=== PATIENT | male | born 2000 | race Caucasian/White ===

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

== ENCOUNTER 2019-10-25 16:27 | Emergency (ER) | payer OTHER ==
[2019-10-25 17:35] VITALS: BP 135/67
--- NOTE | 2019-10-25 18:07 | UC ---
Lower Extremity/Ankle HPI - HPI Summary HPI Summary: 18-year-old male presents with 4 day history of tenderness, redness, and swelling to the dorsal left great toe at the base of the toenail. No known injury. Denies fever, chills, drainage, or joint pain. - History of Current Complaint Chief Complaint: UCLowerExtremity Stated Complaint: INFECTED LT BIG TOE Time Seen by Provider: 10/25/19 17:41 Hx Obtained From: Patient Pain Intensity: 5 - Allergies/Home Medications Allergies/Adverse Reactions: Allergies Allergy/AdvReac Type Severity Reaction Status Date / Time No Known Allergies Allergy Verified 10/25/19 17:35 Home Medications: Home Medications Ibuprofen 200 mg PO Q6HR PRN 10/25/19 [History Confirmed 10/25/19] cephALEXin [Keflex] 500 mg PO QID 7 Days #28 capsule 10/25/19 [Rx] PMH/Surg Hx/FS Hx/Imm Hx Previously Healthy: Yes - Denies significant PMH - Surgical History Surgical History: Yes Surgery Procedure, Year, and Place: T&A - Family History Known Family History: Negative: Diabetes - Social History Lives: With Family Alcohol Use: None Substance Use Type: None Smoking Status (MU): Never Smoked Tobacco - Immunization History Most Recent Influenza Vaccination: NOT YET 2017 Vaccination Up to Date: Yes Review of Systems All Other Systems Reviewed And Are Negative: Yes Constitutional: Negative: Fever, Chills Skin: Positive: Other - See HPI Respiratory: Positive: Negative Cardiovascular: Positive: Negative Gastrointestinal: Positive: Negative Genitourinary: Positive: Negative Neurovascular: Negative: Decreased Sensation Musculoskeletal: Negative: Arthralgia, Decreased ROM Neurological/Mental Status: Positive: Negative Physical Exam - Summary Physical Exam Summary: GENERAL APPEARANCE: Well developed, well nourished, alert and cooperative, and appears to be in no acute distress. CARDIAC: Normal S1 and S2. No S3, S4 or murmurs. Rhythm is regular. There is no peripheral edema, cyanosis or pallor. Extremities are warm and well perfused. Capillary refill is less than 2 seconds. Peripheral pulses intact. LUNGS: Clear to auscultation without rales, rhonchi, wheezing or diminished breath sounds. ABDOMEN: Positive bowel sounds. Soft, nondistended, nontender. No guarding or rebound. No masses or hepatosplenomegally. MUSKULOSKELETAL: ROM intact to all extremities. No joint erythema or tenderness. Normal muscular development. Normal gait. EXTREMITIES: Erythema and mild edema to the proximal nail fold of the left great toe without induration, fluctuance, or drainage. SKIN: Skin normal color, texture and turgor. Triage Information Reviewed: Yes Vital Signs: Initial Vital Signs Temp 98 F 10/25/19 17:30 Pulse 77 10/25/19 17:30 Resp 14 10/25/19 17:30 BP 135/67 10/25/19 17:30 Pulse Ox 100 10/25/19 17:30 Vital Signs Reviewed: Yes Lower Extremity Course/Dx - Course Course Of Treatment: 18-year-old male presents with 4 day history of tenderness, redness, and swelling to the dorsal left great toe at the base of the toenail. No known injury. Denies fever, chills, drainage, or joint pain. Afebrile. Vital signs stable. Patient had erythema and mild edema to the proximal nail fold of the left great toe without induration, fluctuance, or drainage and otherwise unremarkable exam. We'll start him on cephalexin 500 mg 4 times a day 7 days to treat for a paronychia. He is to follow-up with podiatry in 3-5 days if symptoms are not improving. Anticipatory guidance and warning symptoms are patient. Verbalizes understanding and agrees with plan of care. - Differential Dx/Diagnosis Differential Diagnosis/HQI/PQRI: Foreign Body, Gout, Infection, Other - Tinea Provider Diagnosis: Paronychia Discharge ED - Sign-Out/Discharge Documenting (check all that apply): Patient Departure All imaging exams completed and their final reports reviewed: No Studies - Discharge Plan Condition: Stable Disposition: HOME Prescriptions: cephALEXin [Keflex] 500 mg PO QID 7 Days #28 capsule Patient Education Materials: Paronychia (ED) Referrals: Richie Kat DO [Primary Care Provider] - Javier VICTORIA,Yoan Holcomb [Doctor of Podiatric Medicine] - 3 Days (Follow up in 3-5 days if no improvement in symptoms. Call for appointment.) Additional Instructions: You appear to have an infection of the toe called a paronychia. We will start you on an antibiotic to treat the infection. Take cephalexin 500 mg one capsule 4 times a day for 7 days. Be sure to take the entire course even if feeling better. Soak the foot in a warm water and Epsom salt solution for 15-20 minutes 3-4 times a day. Follow-up with podiatry in 3-5 days if symptoms are not improving. Call for an appointment. Immediate medical attention if you develop fever greater than 100.5 F, severe pain not managed with pain medication, redness that rapidly spreads, increased swelling of the toe, or red streaking up the leg. Seek immediate medical attention should any of these occur. - Billing Disposition and Condition Condition: STABLE Disposition: Home
== END 2019-10-25 18:28 | disposition home or self-care (01) ==
LOC: UCCORT 16:27
DX: L03.032 Cellulitis of left toe (principal)
CPT/HCPCS: 99212; G0463